=== PATIENT | male | born 1995 | race Caucasian/White ===

== ENCOUNTER 2022-01-23 16:58 | Emergency (ER) | payer OTHER, MEDICARE ==
[~2022-01-23 16:58] MED LIST: IBUPROFEN800 MG PO; NAPROSYN500 MG PO; ZOFRAN ODT 4 MG4 MG SL
[2022-01-23] MEDS ORDERED: IBUPROFEN600 MG PO (19:15)
== END 2022-01-23 20:15 | disposition home or self-care (01) ==
LOC: ER1 16:58
DX: S83.91XA Sprain of unspecified site of right knee, initial encounter (principal); W19.XXXA Unspecified fall, initial encounter
CPT/HCPCS: 73564; 99283